=== PATIENT | male | born 1975 | race Caucasian/White ===

== ENCOUNTER 2024-11-12 05:43 | Emergency (ER) | payer OTHER, SELFPAY ==
[2024-11-12 06:13] VITALS: BP 153/90; PULSE 71; RESP 16; TEMP 37.1; O2SAT 97; BMI 26.5
--- NOTE | 2024-11-12 06:28 | ED_ITS ---
HPI - Wound/Laceration General Chief Complaint: Wound/Laceration Stated Complaint: L&I, R Hand Laceration Time Seen by Provider: 11/12/24 06:00 Source: patient Mode of arrival: Ambulatory History of Present Illness HPI narrative: 49-year-old gentleman presents with right hand laceration after attempting to move a Pallet as he attempted to use the handle he got cut in the process. He is unsure when his last tetanus is. He is able to move his hand, fingers, thumb, wrist with no difficulties. Other than what is stated 14 point review of system is negative. Related Data Previous Rx's ?Medication ?Instructions ?Recorded cephalexin 500 mg capsule 500 mg PO Q6H 7 days #28 cap s 11/12/24 Allergies Allergy/AdvReac Type Severity Reaction Status Date / Time No Known Drug Allergies Allergy Verified 11/12/24 06:13 Review of Systems Review of Systems ROS Unobtainable: All systems reviewed & are unremarkable except as noted in HPI and below Patient History Smoking Status: Never smoker Exam Narrative Exam Narrative: GENERAL: [49] year old patient appears stated age. Well-developed patient, in mild distress. HEAD: Atraumatic. Normocephalic. EYES: Pupils equal round and reactive. Extraocular motions intact. No scleral icterus. No injection or drainage. EXTREMITIES: No edema or joint tenderness. BACK: Nontender without deformity or crepitance. No flank tenderness. NEURO: AOx3. SKIN: No rash or erythema of visible areas Initial Vital Signs Initial Vital Signs: Vital Signs Temperature 98.8 F 11/12/24 06:13 Pulse Rate 71 11/12/24 06:13 Respiratory Rate 16 11/12/24 06:13 Blood Pressure 153/90 H 11/12/24 06:13 Pulse Oximetry 97 11/12/24 06:13 Oxygen Delivery Method Room Air 11/12/24 06:13 Procedures Laceration Repair Laceration 1: Time of procedure: 06:49 Site: upper extremity Side (If applicable): right (R wrist) Size (cm): 3.0 Description: linear Depth: involves muscle layer Local Anesthetic: with epi Amount of anesthesia used (mL): 3 Pre-repair: wound explored, irrigated extensively and deep structures intact Skin layer closed with: nylon Skin layer suture size: 4-0 Number of sutures: 6 Technique: simple, interrupted Course Vital Signs Vital signs: Vital Signs - 8 hr 11/12/24 06:13 Temperature 98.8 F Pulse Rate 71 Respiratory Rate 16 Blood Pressure 153/90 H Pulse Oximetry 97 Oxygen Delivery Method Room Air MDM - Wound/Laceration MDM Narrative Medical decision making narrative: Vital signs, nurse triage note, medication list, previous ER visits, and all imaging studies reviewed. Six stitches simple interrupted using 4.0 nylon used. Tdap then today and bacitracin ointment applied. Keflex also given at here and at discharge. Differential diagnosis cellulitis laceration foreign body. Suture removal 10-14 days. Discharge Plan Departure Patient Disposition: Home Clinical Impression: Laceration Instructions: DI for Laceration Repair Activity Restrictions/Additional Instructions: Return with new or worsening symptoms. Take your medicines directed. Suture removal in 10-14 days PCP. Prescriptions: New cephalexin 500 mg capsule 500 mg PO Q6H 7 Days Qty: 28 0RF Stand Alone Forms: Patient Portal/API
[2024-11-12] MEDS: LIDOCAINE 1% W/EPI 10ML 4 ML INJ (06:34)
[2024-11-12] MEDS: TET,DIPH,PERTUSS(ACELL),VAC/PF 0.5 ML SYRINGE IM (06:34)
--- NOTE | 2024-11-12 06:42 | PC.NURSE ---
Dr. Cooper at bedside for laceration repair
[2024-11-12] MEDS: BACITRACIN OINT 0.9 GM PCKT 1 APPLIC TOP (06:53)
== END 2024-11-12 07:01 | disposition home or self-care (01) ==
PROVIDERS: Emergency Provider Family Medicine
DX: S61.411A Laceration without foreign body of right hand, initial encounter (principal); W26.9XXA Contact with unspecified sharp object(s), initial encounter; Z23 Encounter for immunization
CPT/HCPCS: 12042; 90471; 99283; 90715